=== PATIENT | female | born 1985 | race Caucasian/White ===

== ENCOUNTER 2016-10-08 09:22 | Emergency (ER) | payer OTHER ==
[~2016-10-08] VITALS: Wt 71.0 kg
[~2016-10-08 09:22] MED LIST: BECL7.3A5; RTPRO5
[2016-10-08] MEDS ORDERED: KETOROLAC 60 MG INJ IM STA (10:10)
--- NOTE | 2016-10-08 10:29 | ERD ---
ER Documentation Chief Complaint Date/Time DATE: 10/08/16 TIME: 10:24 Chief Complaint LEFT SIDED FLANK PAIN X 1 WEEK HPI 31-year-old female is complaining of left lower quadrant pain 1 week. The pain is sharp and intermittent. This morning, the pain had migrated to the left flank. She was seen at [facility] 1 week ago at onset of the pain. She had received ultrasound of the pelvis and kidneys as well as CT scan. The diagnosis at that time was UTI with hematuria. She was given Keflex. Her symptoms did not improve. 5 days ago, she returned to [facility]. She was told that she may have kidney stone at that time, and was given Wheatley and naproxen. She took both Wheatley and naproxen at 6:30 AM this morning. Patient reports very dark colored urine at the onset of symptoms 1 week ago. Currently she has urinary frequency with very small amount urine output. But denies dysuria or urinary urgency. Denies fever or chills. Patient reports nauseous but no vomiting. She has history of PCOS and asthma. ROS All systems reviewed and are negative except as per history of present illness. Medications Home Meds Active Scripts Ondansetron (Ondansetron Odt) 4 Mg Tab.rapdis, 4 MG PO Q6H Y for NAUSEA AND/OR VOMITING, #10 TAB Take with Wheatley Prov:PARAM GAMBLE. MOLDER SHOULDER PAD 10/08/16 Ibuprofen* (Motrin*) 800 Mg Tab, 800 MG PO Q8 Y for PAIN AND OR ELEVATED TEMP, # 30 TAB Prov:PARAM GAMBLE. MOLDER SHOULDER PAD 10/08/16 Hydrocodone/Acetaminophen (Wheatley 5-325 Tablet) 1 Each Tablet, 1 TAB PO Q6H Y for SEVERE PAIN LEVEL 7-10, #10 TAB Prov:PARAM GAMBLE. MOLDER SHOULDER PAD 10/08/16 Reported Medications Albuterol Sulfate* (Proventil* Neb) 0.5 Ml Nebu 05/10/10 Beclomethasone Dipropionate (Qvar) 7.3 Gm Aer.w.adap 05/10/10 Allergies Allergies: Coded Allergies: No Known Drug Allergies (Verified Allergy, Mild, 05/10/10) PMhx/Soc History of Surgery: No Anesthesia Reaction: No Hx Neurological Disorder: No Hx Respiratory Disorders: Yes (ASTHMA) Hx Cardiac Disorders: No Hx Psychiatric Problems: No Hx Miscellaneous Medical Probl: No Hx Alcohol Use: No Hx Substance Use: No Hx Tobacco Use: No Physical Exam Vitals Vital Signs Date Time Temp Pulse Resp B/P Pulse Ox O2 Delivery O2 Flow Rate FiO2 10/08/16 09:25 98.0 81 18 132/92 99 Physical Exam General impression: Well-developed, well-nourished. Alert, oriented, in no acute distress Head: Normocephalic, atraumatic. Eyes: PERRL, EOM normal. Sclerae are normal. Conjunctiva not injected. Neck: Supple, nontender. No lymphadenopathy. No nuchal rigidity. Respiration: Normal respiratory effort. Lungs clear to auscultate bilaterally. No wheezes, rales or rhonchi. Cardiovascular: Regular rate and rhythm. No murmurs or extra heart sounds. Abdomen: Abdomen normal to inspection. Left upper quadrant tenderness, no rebound or guarding. No masses or organomegaly. Bowel sounds normal. Back: Normal to inspection. No midline spine tenderness. Mild left CVA tenderness. Extremities: Extremities normal to inspection, nontender. ROM normal. Neuro: Mental status normal, speech normal. [employer] grossly intact. Skin: Normal turgor. No rash or lesions. Psych: Normal mood and affect. Result Diagram: 10/08/16 1218 Results 24 hrs Laboratory Tests Test 10/08/16 10:36 10/08/16 12:18 Urine Color LT. YELLOW Urine Clarity HAZY Urine pH 6.5 Urine Specific [place] 1.020 Urine Ketones NEGATIVE Urine Nitrite NEGATIVE Urine Bilirubin NEGATIVE Urine Urobilinogen 0.2 E.U./dL Urine Leukocyte Esterase NEGATIVE Urine Microscopic RBC 25-50/HPF Urine Microscopic WBC NONE SEEN/HPF Urine Squamous Epithelial Cells FEW Urine Hemoglobin 3+ Urine Glucose NEGATIVE% Urine Total Protein TRACE Blood Urea Nitrogen 13mg/dl Creatinine 0.70mg/dl Current Medications Medications (Trade) Dose Ordered Sig/Giancarlo Route PRN Reason Start Time Stop Time Status Last Admin Dose Admin Ketorolac Tromethamine (Toradol) 60 mg ONCE STAT IM 10/08/16 10:10 10/08/16 10:14 DC 10/08/16 10:43 Acetaminophen/ Hydrocodone Bitart (Wheatley (5/325)) 1 tab ONCE ONCE PO 10/08/16 14:00 10/08/16 14:01 Ondansetron HCl (Zofran Odt) 4 mg ONCE STAT ODT 10/08/16 13:44 10/08/16 13:45 DC Procedures/MDM Well-appearing 31-year-old female presented to ED with pelvic pain and left flank pain. Toradol given to the patient in the ED. Patient reports improvement in pain after Toradol. UA showed 3+ hemoglobin, negative leukocyte and negative nitrite. Ultrasound of the kidneys showed mild to moderate hydronephrosis on the left. BUN and creatinine was obtained, both were negative. Patient does not have any decreased renal function. I feel patient can be discharged home for outpatient management at this time. Medical decision making shared with patient and family. Education provided to patient and family. Patient and family expressed understanding of the plan. Medications on discharge: Wheatley, Zofran, ibuprofen. Follow-up: Primary care provider in 2-3 days or return to ED if if she develops a fever, or her symptoms worsen. The case was reviewed and discussed with Dr. Leon, who agrees with the plan of care including labs, treatment, and advanced imaging as appropriate. Departure Diagnosis: Primary Impression: Flank pain Condition: PARAM Ca NP Oct 08, 2016 10:29
[2016-10-08 11:06] LABS: ADD UMIC YES; URINE BILIRUBIN (Dip) NEGATIVE (NEGATIVE); URINE BLOOD (Dip) 3+ (NEGATIVE); URINE COLOR LT. YELLOW (YELLOW); URINE GLUCOSE (Dip) NEGATIVE (NEGATIVE); URINE KETONES (Dip) NEGATIVE (NEGATIVE); URINE LEUKOCYTE ESTERASE (Dip) NEGATIVE (NEGATIVE); URINE NITRITE (Dip) NEGATIVE (NEGATIVE); URINE TOTAL PROTEIN (Dip) TRACE (NEGATIVE); URINE UROBILINOGEN (Dip) 0.2 E.U./dL (0.1-1.0)
--- NOTE | 2016-10-08 11:44 | RADRPT ---
PROCEDURE: Renal US. CLINICAL INDICATION: left flank pain, r/o hydronephrosis TECHNIQUE: Multiple sonographic images of the kidneys were obtained. The images were reviewed on a PACS workstation. COMPARISON: No prior studies are available for comparison. FINDINGS: The kidneys are well visualized. The right kidney measures 10.3 cm. The left kidney measures 13.3 cm . There are no focal areas of abnormal echogenicity. There is mild to moderate left hydronephrosis. The bladder is not distended. IMPRESSION: Mild to moderate left hydronephrosis. A CT urogram could be performed for further evaluation as cli nically indicated. RPTAT:AAJJ Physician Nik Date Time Electronically viewed and signed by Physician Nik on 10/08/2016 11:44 ALLY/
[2016-10-08 11:49] LABS: URINE RBCS 25-50 /HPF (0)
[2016-10-08 11:50] LABS: SQUAMOUS EPITHELIAL CELL,UR FEW
[2016-10-08 13:11] LABS: CREATININE 0.7 mg/dl (0.44-1.00)
[2016-10-08] MEDS ORDERED: ONDANSETRON (ODT) 4 MG TAB ODT STA (13:44)
[2016-10-08] MEDS ORDERED: ONDA4TAB14 PO (13:46)
[2016-10-08] MEDS ORDERED: HYDR-906 PO (13:46)
[2016-10-08] MEDS ORDERED: IBUP800T25 PO (13:46)
[2016-10-08] MEDS ORDERED: HYDROCODONE/APAP (5/325) TAB PO ONE (14:00)
[2016-10-08 14:04] VITALS: BP 124/80; RESP 18; TEMP 97.6
== END 2016-10-08 14:05 | disposition home or self-care (01) ==
LOC: FTE 09:22
DX: R10.12 Left upper quadrant pain (principal); R11.0 Nausea; J45.909 Unspecified asthma, uncomplicated; R10.2 Pelvic and perineal pain
CPT/HCPCS: 76775; 81001; 81003; 82565; 84520; J1885; 96372